=== PATIENT | male | born 1980 | race Hispanic/Latino ===

== ENCOUNTER 2017-02-08 08:20 | Emergency (ER) | payer SELFPAY ==
[2017-02-08] MEDS ORDERED: MOTRIN800 MG PO (08:35)
[2017-02-08] MEDS ORDERED: TRAMADOL HYDROC50 MG PO (08:58)
[2017-02-08 09:44] VITALS: BP 134/85
== END 2017-02-08 09:40 | disposition home or self-care (01) | DRG 563 ==
LOC: ED 08:20
PROC: 2W3MX1Z Immobilization of Left Lower Extremity using Splint (ICD-10-PCS; principal; 2017-02-08)
DX: S82.65XA Nondisplaced fracture of lateral malleolus of left fibula, initial encounter for closed fracture (principal); M25.472 Effusion, left ankle; M25.572 Pain in left ankle and joints of left foot; X50.1XXA Overexertion from prolonged static or awkward postures, initial encounter; Y93.01 Activity, walking, marching and hiking; Y92.414 Local residential or business street as the place of occurrence of the external cause

== ENCOUNTER 2017-04-28 17:17 | Emergency (ER) | payer SELFPAY ==
[~2017-04-28 17:17] MED LIST: MOTRIN800 MG PO; TRAMADOL HYDROC50 MG PO
[2017-04-28 18:01] LABS: HEMATOCRIT 41.3 % (39.0-50.0); HEMOGLOBIN 14.3 g/dl (14.0-18.0); IMMATURE GRANULOCYTES 0.3 % (0.0-1.0); MEAN CELL VOLUME 94.3 fL CALC (80.0-100.0); MEAN CORPUSCULAR HGB 32.6 pG CALC (26.0-32.0); MEAN CORPUSCULAR HGB CONC 34.6 g/L CALC (32.0-36.0); NEUT# 2.11 thou/uL (1.82-7.42); RED BLOOD COUNT 4.38 mill/uL (4.70-6.10); RED CELL DISTRI WIDTH 13.2 % (11.5-15.5)
[2017-04-28 18:25] LABS: URINE BILIRUBIN - DIPSTICK NEGATIVE (NEGATIVE); URINE BLOOD DIPSTICK NEGATIVE (NEGATIVE); URINE CLARITY CLEAR; URINE COLOR YELLOW; URINE GLUCOSE - DIPSTICK NEGATIVE (NEGATIVE); URINE KETONE NEGATIVE (NEGATIVE); URINE LEUK ESTERASE NEGATIVE (NEGATIVE); URINE NITRITE - DIPSTICK NEGATIVE (Negative); URINE PH 5.5 (4.5-8.0); URINE PROTEIN - DIPSTICK NEGATIVE (NEG-TRACE); URINE SPECIFIC GRAVITY <=1.005; URINE UROBILINOGEN - DIPSTICK 0.2 E.U./dL (0.2)
[2017-04-28 18:41] LABS: ALBUMIN 4.4 g/dL (3.2-5.0); ALKALINE PHOSPHATASE 123 u/l (38-126); AMYLASE 45 u/l (30-110); ANION GAP 20 (6-22 (CALC)); BILIRUBIN, TOTAL 0.5 mg/dL (0.0-1.4); BUN 6 mg/dL (9-20); BUN/CREATININE RATIO 11 (12-20 (CALC)); CALCIUM 8.8 mg/dL (8.4-10.2); CARBON DIOXIDE 21 mmol/l (22-30); CHLORIDE 102 mmol/l (95-108); CREATININE 0.5 mg/dL (0.7-1.3); GFR > 60 ML/MIN (>=60 (CALC)); GFR FOR AFR.AMER. > 60 ML/MIN (>=60 (CALC)); GLUCOSE 99 mg/dL (75-110); LIPASE 68 u/l (23-300); POTASSIUM 3.8 mmol/l (3.5-5.1); SGOT/AST 40 u/l (17-59); SGPT/ALT 25 u/l (21-72); SODIUM 139 mmol/l (137-146); TOTAL PROTEIN 7.1 g/dL (6.3-8.2)
[2017-04-28 18:52] LABS: MYOGLOBIN 22 ng/mL (0 - 121)
[2017-04-28 18:54] LABS: ETHYL ALCOHOL 367 mg/dl (0-30)
[2017-04-29 08:04] VITALS: BP 119/77
== END 2017-04-29 08:05 | disposition home or self-care (01) | DRG 563 ==
LOC: ED 17:17 → EDBD 17:17 → ED 17:32
PROVIDERS: Emergency Medicine
DX: S82.832A Other fracture of upper and lower end of left fibula, initial encounter for closed fracture (principal); F10.129 Alcohol abuse with intoxication, unspecified; R07.89 Other chest pain; W19.XXXA Unspecified fall, initial encounter; Y92.410 Unspecified street and highway as the place of occurrence of the external cause